=== PATIENT | female | born 1935 | race Caucasian/White ===

== ENCOUNTER 2017-04-13 07:58 | Inpatient (IN) | payer MEDICARE ==
[~2017-04-13] VITALS: Ht 167.6 cm; Wt 65.7 kg
[~2017-04-13 07:58] MED LIST: BUDE180H IH; BUSP10TA3 PO; CALC1TAB3 PO; CHOL100044 PO; FISH1CAP27 PO; FLUT1BLS IH; LACT10SO PO; LEVO25TA54 PO; LISI-617 PO; METO25TA3 PO; MONT10TA21 PO; PARO-37 PO; PRED10TA3 PO; RANO500T2 PO; SIMV20TA6 PO; WARF3TAB29 PO; albuterol NEB; albuterol sulfate IH; glucosamine PO; normal saline EN
[2017-04-13] MEDS ORDERED: IPRATROPIUM/ALBUTEROL SULFATE 3 ML SOLUTION IH ONE ×2 (08:12→11:09)
[2017-04-13 08:26] LABS: BASOPHILS % (AUTO) 0.3 % (0.0-5.0); EOSINOPHILS % (AUTO) 0.7 % (0.0-8.0); HEMATOCRIT 36.5 % (36-48); LYMPHOCYTES % (AUTO) 14.8 % (21.0-51.0); MEAN CORPUSCULAR HEMOGLOBIN 26.1 pg (27.0-33.0); MEAN CORPUSCULAR HGB CONC 32.7 g/dL (32.0-36.0); MEAN CORPUSCULAR VOLUME 79.9 fL (79-99); MONOCYTES % (AUTO) 9.5 % (3.0-13.0); NEUTROPHILS % (AUTO) 74.7 % (40.0-77.0); PLATELET COUNT (AUTO) 194 K/uL (130-400); RED BLOOD CELL COUNT(AUTO) 4.57 MIL/uL (4.00-5.50); RED CELL DISTRIBUTION WIDTH 17.8 % (11.0-15.5)
[2017-04-13 08:34] LABS: CREATININE 0.9 mg/dL (0.5-1.5); POTASSIUM 4.1 mmol/L (3.5-5.1)
[2017-04-13 08:43] LABS: INR 0.98 (0.85-1.15); PARTIAL THROMBOPLASTIN TIME 25.2 SEC (26.3-35.5); PROTHROMBIN TIME 10.3 SEC (9.6-11.6)
[2017-04-13 08:48] LABS: ALBUMIN 3.7 g/dL (3.5-5.0); BILIRUBIN,TOTAL 0.6 mg/dL (0.2-1.0); CREATINE KINASE MB 0.8 ng/mL (0.5-3.6); TOTAL PROTEIN, SERUM 7.5 g/dL (6.0-8.3)
[2017-04-13] MEDS ORDERED: SODIUM CHLORIDE 0.9% 1000ML 1,000 ML IV ONE (10:24)
[2017-04-13] MEDS ORDERED: SODIUM CHLORIDE 0.9% 100 ML IV ONE (10:25)
[2017-04-13] MEDS ORDERED: CEFTRIAXONE SODIUM 2 GM VIAL ONE (10:25)
[2017-04-13] MEDS ORDERED: OSELTAMIVIR PHOSPHATE 75 MG CAP ONE (10:25)
[2017-04-13] MEDS ORDERED: HYDROCODONE/ACETAMINOPHEN 5/325 MG TAB ONE (11:03)
[2017-04-13] MEDS ORDERED: FUROSEMIDE 10 MG/ML 4ML VIAL ONE ×2 (11:07→11:27)
[2017-04-13] MEDS ORDERED: NITROGLYCERIN 50 MG/D5% WATER 1 BOT ONE (11:37)
[2017-04-13 11:41] LABS: ABG BASE EXCESS -8.4 mmol/L (-2.0-3.0); ABG HCO3 18.1 mmol/L (21.0-28.0); ABG OXYGEN SATURATION 99.6 % (95.0-99.0); ABG PCO2 41 mmHg (32-45)
[2017-04-13] MEDS ORDERED: LIDOCAINE HCL-MPF 1% 2ML VIAL IVP PRN (12:30)
[2017-04-13] MEDS ORDERED: NON-FORMULARY MEDICATION 1 EACH (Metoprolol Succinate (Toprol Xl) 25 MG) PO PRN (12:30)
[2017-04-13] MEDS ORDERED: ONDANSETRON HCL 4 MG/2 ML VIAL IV PRN (12:30)
[2017-04-13] MEDS ORDERED: POTASSIUM CHLORIDE 10% ELIXIR 20 MEQ/15 ML UDCUP PO PRN (12:30)
[2017-04-13] MEDS ORDERED: ALBUTEROL SULFATE 0.083% 2.5 MG/3 ML INH IH PRN (12:30)
[2017-04-13] MEDS ORDERED: POTASSIUM CHLORIDE 20 MEQ ERTAB PO PRN (12:30)
[2017-04-13] MEDS ORDERED: LACTULOSE 20 GM/30 ML UDCUP PO PRN (12:30)
[2017-04-13] MEDS ORDERED: MAG HYDROX/AL HYDROX/SIMETH ES 30 ML SUSP UDCUP PO PRN (12:30)
[2017-04-13] MEDS ORDERED: ACETAMINOPHEN 325 MG TAB PO PRN ×2 (12:30)
[2017-04-13] MEDS ORDERED: POTASSIUM CHLORIDE 20MEQ/100ML 100 ML IV PRN (12:30)
[2017-04-13] MEDS ORDERED: CLOP75TA32 PO (12:31)
[2017-04-13] MEDS ORDERED: VANCOMYCIN 1GM+NS 250ML 250 ML IV ONE (12:50)
[2017-04-13] MEDS: LEVOFLOXACIN 500 MG TABLET PO SCH (15:00)
[2017-04-13] MEDS ORDERED: METHYLPREDNISOLONE SOD SUCC 125MG/2ML VIAL ONE (17:04)
[2017-04-13] MEDS ORDERED: AZITHROMYCIN 250 MG TABLET PO ONE (17:05)
[2017-04-13] MEDS ORDERED: 1/2 NORMAL SALINE 1,000 ML IV ONE (17:06)
[2017-04-13] MEDS ORDERED: ONDANSETRON HCL 4 MG/2 ML VIAL ONE (18:03)
[2017-04-13] MEDS ORDERED: OSELTAMIVIR PHOSPHATE 75 MG CAP PO SCH (21:00)
[2017-04-13] MEDS: MONTELUKAST SODIUM 10 MG TAB PO SCH (21:00)
[2017-04-13] MEDS: ALBUTEROL SULFATE 0.083% 2.5 MG/3 ML INH IH SCH (21:00)
[2017-04-13] MEDS: FUROSEMIDE 10 MG/ML 4ML VIAL IVP SCH (21:00)
[2017-04-13] MEDS: ATORVASTATIN CALCIUM 10 MG TABLET PO SCH (21:00)
[2017-04-13] MEDS ORDERED: ALBUTEROL SULFATE 0.083% 2.5 MG/3 ML INH IH ONE (22:06)
[2017-04-14 05:29] LABS: HEMATOCRIT 32.9 % (36-48); MEAN CORPUSCULAR HEMOGLOBIN 25.7 pg (27.0-33.0); MEAN CORPUSCULAR HGB CONC 32.2 g/dL (32.0-36.0); MEAN CORPUSCULAR VOLUME 79.8 fL (79-99); PLATELET COUNT (AUTO) 170 K/uL (130-400); RED BLOOD CELL COUNT(AUTO) 4.13 MIL/uL (4.00-5.50); WHITE BLOOD COUNT (AUTO) 13.6 K/uL (4.8-10.8)
[2017-04-14 05:37] LABS: CREATININE 1.3 mg/dL (0.5-1.5)
[2017-04-14] MEDS ORDERED: ALBUTEROL SULFATE 0.083% 2.5 MG/3 ML INH IH ONE ×2 (06:11→10:18)
[2017-04-14] MEDS: ALBUTEROL SULFATE 0.083% 2.5 MG/3 ML INH IH SCH ×4 (06:22→21:29)
[2017-04-14] MEDS: LEVOTHYROXINE 25 MCG TABLET PO SCH (06:30)
[2017-04-14] MEDS: PREDNISONE 20 MG TABLET PO SCH ×2 (07:00→09:00)
[2017-04-14] MEDS ORDERED: FUROSEMIDE 10 MG/ML 4ML VIAL ONE (08:46)
[2017-04-14] MEDS ORDERED: LEVOTHYROXINE 25 MCG TABLET ONE (08:46)
[2017-04-14] MEDS ORDERED: LEVOFLOXACIN 500 MG TABLET ONE (08:47)
[2017-04-14] MEDS ORDERED: ENOXAPARIN SODIUM 30 MG/0.3 ML SQ ONE (08:47)
[2017-04-14] MEDS ORDERED: PREDNISONE 20 MG TABLET ONE (08:47)
[2017-04-14] MEDS ORDERED: OSELTAMIVIR PHOSPHATE 75 MG CAP ONE (08:49)
[2017-04-14] MEDS ORDERED: PANTOPRAZOLE SODIUM 40 MG TABLET.DR PO ONE (08:56)
[2017-04-14] MEDS: BUSPIRONE HCL 5 MG TABLET PO SCH ×2 (09:00→21:16)
[2017-04-14] MEDS: PAROXETINE HCL 20 MG TABLET PO SCH (09:00)
[2017-04-14] MEDS: ENOXAPARIN SODIUM 30 MG/0.3 ML SQ SCH (09:00)
[2017-04-14] MEDS: PANTOPRAZOLE SODIUM 40 MG TABLET.DR PO SCH (09:00)
[2017-04-14] MEDS: FUROSEMIDE 10 MG/ML 4ML VIAL IVP SCH ×2 (09:00→21:17)
[2017-04-14] MEDS: POTASSIUM CHLORIDE 20 MEQ ERTAB PO SCH ×2 (09:00→21:17)
[2017-04-14] MEDS: RANOLAZINE 500 MG TAB.SR.12H PO SCH ×4 (09:00→21:00)
[2017-04-14] MEDS ORDERED: PAROXETINE HCL 25 MG TAB.SR.24H PO SCH (09:15)
[2017-04-14] MEDS ORDERED: ACETAMINOPHEN 325 MG TAB ONE (10:14)
[2017-04-14] MEDS ORDERED: ASPI-555 PO (12:18)
[2017-04-14] MEDS ORDERED: GABA-529 PO (12:18)
[2017-04-14 13:20] VITALS: BP 123/58
[2017-04-14] MEDS ORDERED: COMPOUND PO NARCOTIC 1 EACH PO SCH (14:45)
[2017-04-14] MEDS: LEVOFLOXACIN 500 MG TABLET PO SCH ×2 (15:00→17:56)
[2017-04-14 15:24] VITALS: BP 106/51
[2017-04-14 19:43] VITALS: BP 132/67
[2017-04-14] MEDS: MONTELUKAST SODIUM 10 MG TAB PO SCH (21:15)
[2017-04-14] MEDS: OSELTAMIVIR SUSP 15 MG/ML (6 CAPS/29ML) PO SCH ×2 (21:15)
[2017-04-14] MEDS: ATORVASTATIN CALCIUM 10 MG TABLET PO SCH (21:16)
[2017-04-15 00:21] VITALS: BP 147/65
[2017-04-15 05:01] VITALS: BP 120/59
[2017-04-15 05:34] LABS: HEMATOCRIT 31.4 % (36-48); MEAN CORPUSCULAR HEMOGLOBIN 26.5 pg (27.0-33.0); MEAN CORPUSCULAR HGB CONC 33.5 g/dL (32.0-36.0); MEAN CORPUSCULAR VOLUME 79.1 fL (79-99); PLATELET COUNT (AUTO) 177 K/uL (130-400); RED BLOOD CELL COUNT(AUTO) 3.97 MIL/uL (4.00-5.50); RED CELL DISTRIBUTION WIDTH 17.4 % (11.0-15.5); WHITE BLOOD COUNT (AUTO) 11.7 K/uL (4.8-10.8)
[2017-04-15 05:56] LABS: CREATININE 1.3 mg/dL (0.5-1.5); POTASSIUM 4.5 mmol/L (3.5-5.1)
[2017-04-15] MEDS: ALBUTEROL SULFATE 0.083% 2.5 MG/3 ML INH IH SCH ×4 (06:03→18:37)
[2017-04-15] MEDS: LEVOTHYROXINE 25 MCG TABLET PO SCH (07:04)
[2017-04-15 08:00] VITALS: BP 129/58
[2017-04-15] MEDS: PREDNISONE 20 MG TABLET PO SCH (08:53)
[2017-04-15] MEDS: POTASSIUM CHLORIDE 20 MEQ ERTAB PO SCH ×2 (08:53→20:50)
[2017-04-15] MEDS: RANOLAZINE 500 MG TAB.SR.12H PO SCH ×5 (08:54→20:59)
[2017-04-15] MEDS: BUSPIRONE HCL 5 MG TABLET PO SCH ×2 (08:54→20:49)
[2017-04-15] MEDS: PANTOPRAZOLE SODIUM 40 MG TABLET.DR PO SCH (08:54)
[2017-04-15] MEDS: FUROSEMIDE 10 MG/ML 4ML VIAL IVP SCH ×2 (08:54→20:50)
[2017-04-15] MEDS: PAROXETINE HCL 20 MG TABLET PO SCH (08:54)
[2017-04-15] MEDS: ENOXAPARIN SODIUM 30 MG/0.3 ML SQ SCH (08:55)
[2017-04-15] MEDS: OSELTAMIVIR SUSP 15 MG/ML (6 CAPS/29ML) PO SCH ×4 (08:58→21:00)
[2017-04-15 11:00] VITALS: BP 130/59
[2017-04-15] MEDS: LEVOFLOXACIN 500 MG TABLET PO SCH (14:43)
[2017-04-15 16:00] VITALS: BP 142/62
[2017-04-15 20:15] VITALS: BP 132/63
[2017-04-15] MEDS: ATORVASTATIN CALCIUM 10 MG TABLET PO SCH (20:50)
[2017-04-15] MEDS: MONTELUKAST SODIUM 10 MG TAB PO SCH (20:50)
[2017-04-16 00:54] VITALS: BP 118/58
[2017-04-16 04:26] VITALS: BP 115/59
[2017-04-16] MEDS: OSELTAMIVIR SUSP 15 MG/ML (6 CAPS/29ML) PO SCH ×4 (06:48→09:05)
[2017-04-16] MEDS: LEVOTHYROXINE 25 MCG TABLET PO SCH (06:51)
[2017-04-16] MEDS ORDERED: Buspirone Hcl PO (07:22)
[2017-04-16] MEDS ORDERED: OSEL45CA PO (07:22)
[2017-04-16] MEDS ORDERED: LEVO500T2 PO (07:22)
[2017-04-16] MEDS ORDERED: PRED10TA3 PO (07:22)
[2017-04-16 07:45] VITALS: BP 146/75
[2017-04-16] MEDS: ALBUTEROL SULFATE 0.083% 2.5 MG/3 ML INH IH SCH ×3 (07:49→13:13)
[2017-04-16] MEDS: RANOLAZINE 500 MG TAB.SR.12H PO SCH ×2 (09:00→09:07)
[2017-04-16] MEDS ORDERED: GABAPENTIN 100 MG CAPSULE PO SCH (09:00)
[2017-04-16] MEDS: ENOXAPARIN SODIUM 30 MG/0.3 ML SQ SCH (09:06)
[2017-04-16] MEDS: PANTOPRAZOLE SODIUM 40 MG TABLET.DR PO SCH (09:07)
[2017-04-16] MEDS: PREDNISONE 20 MG TABLET PO SCH (09:08)
[2017-04-16] MEDS: POTASSIUM CHLORIDE 20 MEQ ERTAB PO SCH (09:08)
[2017-04-16] MEDS: BUSPIRONE HCL 5 MG TABLET PO SCH (09:08)
[2017-04-16] MEDS: PAROXETINE HCL 20 MG TABLET PO SCH (09:08)
[2017-04-16] MEDS ORDERED: METOPROLOL TARTRATE 25 MG TAB PO SCH ×2 (09:15→21:00)
[2017-04-16 12:00] VITALS: BP 130/60
[2017-04-16] MEDS: LEVOFLOXACIN 500 MG TABLET PO SCH (15:30)
== END 2017-04-16 16:47 | disposition home or self-care (01) | DRG 291 ==
LOC: EDH 07:58 → OBSVTOIN 11:05 → EDHIP 11:05 → 4BH 04-14 13:09
PROVIDERS: ADMIT Internal Medicine; ATTEND Internal Medicine
DX: I13.0 Hypertensive heart and chronic kidney disease with heart failure and stage 1 through stage 4 chronic kidney disease, or unspecified chronic kidney disease (principal); I50.43 Acute on chronic combined systolic (congestive) and diastolic (congestive) heart failure; E86.0 Dehydration; Z94.0 Kidney transplant status; J45.901 Unspecified asthma with (acute) exacerbation; I48.91 Unspecified atrial fibrillation; F03.90 Unspecified dementia, unspecified severity, without behavioral disturbance, psychotic disturbance, mood disturbance, and anxiety; J44.9 Chronic obstructive pulmonary disease, unspecified; E03.9 Hypothyroidism, unspecified; E78.2 Mixed hyperlipidemia; K21.9 Gastro-esophageal reflux disease without esophagitis; F41.1 Generalized anxiety disorder; I50.32 Chronic diastolic (congestive) heart failure; M81.0 Age-related osteoporosis without current pathological fracture; I35.0 Nonrheumatic aortic (valve) stenosis; I25.10 Atherosclerotic heart disease of native coronary artery without angina pectoris; Z95.2 Presence of prosthetic heart valve; Z83.3 Family history of diabetes mellitus; Z82.5 Family history of asthma and other chronic lower respiratory diseases; Z82.49 Family history of ischemic heart disease and other diseases of the circulatory system; Z82.3 Family history of stroke; Z82.0 Family history of epilepsy and other diseases of the nervous system; Z95.5 Presence of coronary angioplasty implant and graft; Z79.01 Long term (current) use of anticoagulants; Z88.8 Allergy status to other drugs, medicaments and biological substances; Z91.041 Radiographic dye allergy status
CPT/HCPCS: 36415; 36600; 71045; 71046; 80048; 80053; 82550; 82553; 82803; 83605; 83880; 84484; 85025; 85027; 85610; 85730; 87040; 87804; 93005; 94640; 94660; 94664; 99291; J0696; J1650; J1940; J2405; J2930; J3370; J3490; J7030

== ENCOUNTER → 2017-05-08 | Outpatient (CLI) | payer MEDICARE ==
[~2017-05-08] MED LIST changes: +ASPI-555 PO; -BUDE180H IH; -BUSP10TA3 PO; +Buspirone Hcl PO; -CALC1TAB3 PO; -CHOL100044 PO; +CLOP75TA32 PO; -FISH1CAP27 PO; +GABA-529 PO; -LACT10SO PO; +LEVO500T2 PO; -LISI-617 PO; +OSEL45CA PO; -RANO500T2 PO; -SIMV20TA6 PO; -WARF3TAB29 PO; -albuterol NEB; -albuterol sulfate IH; -glucosamine PO; -normal saline EN
== END | disposition home or self-care (01) ==
LOC: RAH 09:58
PROVIDERS: ATTEND Internal Medicine
DX: I13.10 Hypertensive heart and chronic kidney disease without heart failure, with stage 1 through stage 4 chronic kidney disease, or unspecified chronic kidney disease (principal); N18.9 Chronic kidney disease, unspecified; J44.0 Chronic obstructive pulmonary disease with (acute) lower respiratory infection
CPT/HCPCS: 71046

== ENCOUNTER → 2017-06-11 | Outpatient (CLI) | payer MEDICARE | LOC: RAH 10:27 | PROVIDERS: ATTEND Internal Medicine | DX: I10 Essential (primary) hypertension (principal); R93.8 Abnormal findings on diagnostic imaging of other specified body structures | CPT/HCPCS: 71046 ==

== ENCOUNTER 2017-09-14 16:12 | Emergency (ER) | payer MEDICARE ==
[2017-09-14] MEDS ORDERED: ONDANSETRON ODT 4 MG TAB ONE (16:42)
[2017-09-14] MEDS ORDERED: HYDROCODONE/ACETAMINOPHEN 5/325 MG TAB ONE (16:43)
[2017-09-14 16:46] LABS: BASOPHILS % (AUTO) 0.8 % (0.0-5.0); EOSINOPHILS % (AUTO) 4.5 % (0.0-8.0); HEMATOCRIT 35.1 % (36-48); LYMPHOCYTES % (AUTO) 25.3 % (21.0-51.0); MEAN CORPUSCULAR HEMOGLOBIN 27.6 pg (27.0-33.0); MEAN CORPUSCULAR HGB CONC 33.1 g/dL (32.0-36.0); MEAN CORPUSCULAR VOLUME 83.4 fL (79-99); MONOCYTES % (AUTO) 12.7 % (3.0-13.0); NEUTROPHILS % (AUTO) 56.7 % (40.0-77.0); PLATELET COUNT (AUTO) 227 K/uL (130-400); RED BLOOD CELL COUNT(AUTO) 4.21 MIL/uL (4.00-5.50); RED CELL DISTRIBUTION WIDTH 16.5 % (11.0-15.5); WHITE BLOOD COUNT (AUTO) 4.6 K/uL (4.8-10.8)
[2017-09-14 16:56] LABS: CREATININE 0.7 mg/dL (0.5-1.5); POTASSIUM 4.2 mmol/L (3.5-5.1)
== END 2017-09-14 18:36 | disposition home or self-care (01) ==
LOC: EDH 16:12
DX: M71.21 Synovial cyst of popliteal space [Baker], right knee (principal); M17.11 Unilateral primary osteoarthritis, right knee; I25.10 Atherosclerotic heart disease of native coronary artery without angina pectoris; I48.91 Unspecified atrial fibrillation; Z90.49 Acquired absence of other specified parts of digestive tract; Z98.890 Other specified postprocedural states; Z88.8 Allergy status to other drugs, medicaments and biological substances
CPT/HCPCS: 36415; 73562; 80048; 85025; 93971

== ENCOUNTER → 2019-04-16 | Outpatient (CLI) | payer MEDICARE | END | disposition home or self-care (01) | LOC: RAH 13:00 | PROVIDERS: ATTEND Internal Medicine | DX: M47.816 Spondylosis without myelopathy or radiculopathy, lumbar region (principal); M51.27 Other intervertebral disc displacement, lumbosacral region; M41.86 Other forms of scoliosis, lumbar region; M43.8X6 Other specified deforming dorsopathies, lumbar region; M99.53 Intervertebral disc stenosis of neural canal of lumbar region; M48.061 Spinal stenosis, lumbar region without neurogenic claudication | CPT/HCPCS: 72100; 72148 ==

== ENCOUNTER → 2020-07-06 | Outpatient (CLI) | payer MEDICARE ==
[~2020-07-06] MED LIST changes: -ASPI-555 PO; +ASPI-556 PO
== END | disposition home or self-care (01) ==
LOC: OIH 09:15
PROVIDERS: ATTEND Internal Medicine
DX: S32.020A Wedge compression fracture of second lumbar vertebra, initial encounter for closed fracture (principal); M51.36 Other intervertebral disc degeneration, lumbar region; M85.88 Other specified disorders of bone density and structure, other site; M41.9 Scoliosis, unspecified; X58.XXXA Exposure to other specified factors, initial encounter; Y93.89 Activity, other specified; Y92.89 Other specified places as the place of occurrence of the external cause; Y99.8 Other external cause status
CPT/HCPCS: 72110

== ENCOUNTER → 2020-08-26 | Outpatient (CLI) | payer MEDICARE | END | disposition home or self-care (01) | LOC: RAH 10:32 | PROVIDERS: ATTEND Internal Medicine | DX: M16.0 Bilateral primary osteoarthritis of hip (principal); M25.751 Osteophyte, right hip; M25.752 Osteophyte, left hip | CPT/HCPCS: 72170 ==

== ENCOUNTER 2021-07-15 10:52 | Observation (INO) | payer MEDICARE ==
[~2021-07-15] VITALS: Ht 167.6 cm; Wt 94.8 kg
[2021-07-15 11:34] LABS: BASOPHILS % (AUTO) 0.4 % (0.0-5.0); EOSINOPHILS % (AUTO) 0.1 % (0.0-8.0); HEMATOCRIT 40.7 % (36-48); LYMPHOCYTES % (AUTO) 12.8 % (21.0-51.0); MEAN CORPUSCULAR HEMOGLOBIN 30.5 pg (27.0-33.0); MEAN CORPUSCULAR HGB CONC 32.4 g/dL (32.0-36.0); MONOCYTES % (AUTO) 5.6 % (3.0-13.0); NEUTROPHILS % (AUTO) 80.8 % (40.0-77.0); PLATELET COUNT (AUTO) 228 K/uL (130-400); RED BLOOD CELL COUNT(AUTO) 4.33 MIL/uL (4.00-5.50); RED CELL DISTRIBUTION WIDTH 13.3 % (11.0-15.5); WHITE BLOOD COUNT (AUTO) 6.8 K/uL (4.8-10.8)
[2021-07-15 11:53] LABS: ALBUMIN 3.6 g/dL (3.5-5.0); BILIRUBIN,TOTAL 0.5 mg/dL (0.2-1.0); MAGNESIUM 2.3 mg/dL (1.80-2.40); POTASSIUM 4.7 mmol/L (3.5-5.1); TOTAL PROTEIN, SERUM 6.9 g/dL (6.0-8.3)
[2021-07-15 12:04] LABS: B-TYPE NATRIURETIC PEPTIDE 168 pg/mL (0-100)
[2021-07-15] MEDS ORDERED: ALBU2.5V2 IH (15:06)
[2021-07-15] MEDS ORDERED: ATOR10 PO (15:07)
[2021-07-15] MEDS ORDERED: CALC1TAB2 PO (15:11)
[2021-07-15] MEDS ORDERED: FLUT1BLS IH (15:11)
[2021-07-15] MEDS ORDERED: CILO50TA PO (15:12)
[2021-07-15] MEDS ORDERED: HYDR-4153 PO ×2 (15:13→15:23)
[2021-07-15] MEDS ORDERED: DILT180T12 PO (15:13)
[2021-07-15 15:15] VITALS: BP 136/72
[2021-07-15] MEDS ORDERED: LACT10SO5 PO ×2 (15:15→15:23)
[2021-07-15] MEDS ORDERED: POLY17PO4 PO ×2 (15:15→15:23)
[2021-07-15] MEDS ORDERED: ALBU8.5H8 IH (15:16)
[2021-07-15] MEDS ORDERED: PREG75CA75 PO (15:16)
[2021-07-15] MEDS ORDERED: RANO500T3 PO (15:17)
[2021-07-15] MEDS ORDERED: ACET-2079 PO (15:18)
[2021-07-15] MEDS ORDERED: CYAN-35 PO (15:18)
[2021-07-15] MEDS ORDERED: LEVO50TA11 PO (15:26)
[2021-07-15] MEDS ORDERED: PARO10TA71 PO (15:26)
[2021-07-15] MEDS ORDERED: METO25TA6 PO (15:26)
[2021-07-15] MEDS ORDERED: BUSP10TA3 PO (15:26)
[2021-07-15] MEDS ORDERED: DENO60DI SQ (15:26)
[2021-07-15] MEDS ORDERED: CETI10TA57 PO (15:26)
[2021-07-15 16:00] VITALS: BP 146/74
[2021-07-15] MEDS: NITROGLYCERIN 1GM OINT 1 INCH/1GM TD SCH ×2 (16:00→23:38)
[2021-07-15 19:15] VITALS: BP 150/69
[2021-07-15] MEDS ORDERED: MAG/ALUM/SIMETH 30 ML UDCUP PO PRN (19:30)
[2021-07-15] MEDS ORDERED: LACTULOSE 20 GM/30 ML UDCUP PO PRN (19:30)
[2021-07-15] MEDS ORDERED: LACTULOSE 15 GM PO PRN (19:30)
[2021-07-15] MEDS ORDERED: DiphenhydrAMINE HCL 50 MG/ML VIAL IV PRN (19:30)
[2021-07-15] MEDS ORDERED: ACETAMINOPHEN 325 MG TAB PO PRN (19:30)
[2021-07-15] MEDS ORDERED: ALBUTEROL INHALER 90MCG/INH IH PRN (19:30)
[2021-07-15] MEDS ORDERED: DIPHENHYDRAMINE HCL 25 MG CAPSULE PO PRN (19:30)
[2021-07-15] MEDS ORDERED: NON-FORMULARY MEDICATION 1 EACH (Buspirone HCl 10 MG) PO PRN (19:30)
[2021-07-15] MEDS ORDERED: HYDRALAZINE 25MG TABLET PO PRN (19:30)
[2021-07-15] MEDS ORDERED: ONDANSETRON 4MG INJ IV PRN (19:30)
[2021-07-15] MEDS ORDERED: ALBUTEROL 0.083% 2.5 MG/3 ML INH IH PRN (19:30)
[2021-07-15] MEDS ORDERED: BUSPIRONE HCL 5 MG TABLET PO PRN (20:00)
[2021-07-15] MEDS: ATORVASTATIN 10 MG TABLET PO SCH (20:47)
[2021-07-15] MEDS: ROPINIROLE HCL 0.25 MG TABLET PO SCH (20:47)
[2021-07-15] MEDS: METOPROLOL TARTRATE 25 MG TAB PO SCH (20:47)
[2021-07-15] MEDS: PREGABALIN 75 MG CAPSULE PO SCH (20:47)
[2021-07-15] MEDS: MONTELUKAST SODIUM 10 MG TAB PO SCH (20:47)
[2021-07-16 00:03] VITALS: BP 138/64
[2021-07-16 03:10] VITALS: BP 145/61
[2021-07-16] MEDS: NITROGLYCERIN 1GM OINT 1 INCH/1GM TD SCH ×3 (06:19→22:46)
[2021-07-16] MEDS: ROPINIROLE HCL 0.25 MG TABLET PO SCH ×3 (07:38→20:34)
[2021-07-16] MEDS: ENOXAPARIN SODIUM 30 MG/0.3 ML SQ SCH (07:39)
[2021-07-16] MEDS: DILTIAZEM 180MG SR CAP PO SCH (07:39)
[2021-07-16] MEDS: CETIRIZINE HCL 5 MG TABLET PO SCH (07:39)
[2021-07-16] MEDS: CLOPIDOGREL 75MG TAB PO SCH (07:39)
[2021-07-16] MEDS: RANOLAZINE 500 MG TAB.SR.12H PO SCH (07:40)
[2021-07-16] MEDS: PAROXETINE HCL 20 MG TABLET PO SCH (07:40)
[2021-07-16] MEDS: CILOSTAZOL 100 MG TAB PO SCH ×2 (07:40→16:59)
[2021-07-16] MEDS: METOPROLOL TARTRATE 25 MG TAB PO SCH ×2 (07:42→20:34)
[2021-07-16 08:00] VITALS: BP 117/74
[2021-07-16] MEDS ORDERED: NON-FORMULARY MEDICATION 1 EACH (Cetirizine HCl 10 MG) PO SCH (08:00)
[2021-07-16] MEDS ORDERED: NON-FORMULARY MEDICATION 1 EACH (Cilostazol 50 MG) PO SCH (09:00)
[2021-07-16] MEDS: LEVOTHYROXINE 50 MCG TABLET PO SCH (09:00)
[2021-07-16] MEDS: BREO ELLIPTA 200-25 MCG INH IH SCH (09:00)
[2021-07-16] MEDS ORDERED: NON-FORMULARY MEDICATION 1 EACH (Paroxetine HCl 10 MG) PO SCH (09:00)
[2021-07-16] MEDS ORDERED: NON-FORMULARY MEDICATION 1 EACH (Diltiazem HCl (Diltiazem ER) 180 MG) PO SCH (09:00)
[2021-07-16] MEDS ORDERED: REGADENOSON 0.4 MG/5 ML PF SYG IVP SCH (11:30)
[2021-07-16 12:00] VITALS: BP 122/78
[2021-07-16] MEDS: ACETAMINOPHEN 325 MG TAB PO PRN (13:16)
[2021-07-16 16:00] VITALS: BP 118/64
[2021-07-16 19:12] VITALS: BP 147/63
[2021-07-16] MEDS: ATORVASTATIN 10 MG TABLET PO SCH (20:34)
[2021-07-16] MEDS: PREGABALIN 75 MG CAPSULE PO SCH (20:34)
[2021-07-16] MEDS: MONTELUKAST SODIUM 10 MG TAB PO SCH (20:34)
[2021-07-17 00:03] VITALS: BP 134/58
[2021-07-17 03:05] VITALS: BP 140/54
[2021-07-17] MEDS: LEVOTHYROXINE 50 MCG TABLET PO SCH (05:46)
[2021-07-17] MEDS: NITROGLYCERIN 1GM OINT 1 INCH/1GM TD SCH ×2 (06:24→14:30)
[2021-07-17] MEDS: CILOSTAZOL 100 MG TAB PO SCH ×2 (06:32→16:30)
[2021-07-17] MEDS ORDERED: POLYETHYLENE GLYCOL 3350 17 GM POWD.PACK PO SCH (09:00)
[2021-07-17] MEDS: BREO ELLIPTA 200-25 MCG INH IH SCH (09:00)
[2021-07-17] MEDS: CETIRIZINE HCL 5 MG TABLET PO SCH (09:56)
[2021-07-17] MEDS: PAROXETINE HCL 20 MG TABLET PO SCH (09:57)
[2021-07-17] MEDS: CLOPIDOGREL 75MG TAB PO SCH (10:00)
[2021-07-17] MEDS: ACETAMINOPHEN 325 MG TAB PO PRN (10:00)
[2021-07-17] MEDS: RANOLAZINE 500 MG TAB.SR.12H PO SCH (10:01)
[2021-07-17] MEDS: DILTIAZEM 180MG SR CAP PO SCH (10:01)
[2021-07-17] MEDS: ENOXAPARIN SODIUM 30 MG/0.3 ML SQ SCH (10:02)
[2021-07-17] MEDS: METOPROLOL TARTRATE 25 MG TAB PO SCH ×2 (10:02→20:12)
[2021-07-17] MEDS: ROPINIROLE HCL 0.25 MG TABLET PO SCH ×3 (10:07→20:13)
[2021-07-17 12:48] VITALS: BP 144/52
[2021-07-17] MEDS ORDERED: ISOS30TA92 PO (15:49)
[2021-07-17 16:30] VITALS: BP 140/56
[2021-07-17 19:03] VITALS: BP_SYST 125; BP_SYST 166; BP_DIAS 59; BP_DIAS 92
[2021-07-17] MEDS: ATORVASTATIN 10 MG TABLET PO SCH (20:11)
[2021-07-17] MEDS: PREGABALIN 75 MG CAPSULE PO SCH (20:11)
[2021-07-17] MEDS: MONTELUKAST SODIUM 10 MG TAB PO SCH (21:28)
[2021-07-18 00:03] VITALS: BP 147/59
[2021-07-18 03:03] VITALS: BP 139/62
[2021-07-18 06:02] LABS: APPEARANCE,URINE Clear (CLEAR); BILIRUBIN,URINE Negative (NEGATIVE); COLOR,URINE Yellow (YELLOW); GLUCOSE, URINE (UA) Negative (NEGATIVE); KETONES,URINE Negative (NEGATIVE); LEUKOCYTE ESTERASE ,URINE Small (NEGATIVE); NITRATE,URINE Negative (NEGATIVE); OCCULT BLOOD,URINE Negative (NEGATIVE); PROTEIN,URINE Negative (NEGATIVE); UROBILINOGEN,URINE 0.2 mg/dL (0.2-1.0)
[2021-07-18] MEDS: CILOSTAZOL 100 MG TAB PO SCH (06:06)
[2021-07-18] MEDS: LEVOTHYROXINE 50 MCG TABLET PO SCH (06:06)
[2021-07-18 06:40] LABS: RBC,URINE 0-1 /HPF (0-1); SQUAMOUS EPITHELIAL CELL,UR Moderate /HPF (0-2)
[2021-07-18 06:41] LABS: BACTERIA,URINE Few /HPF (None Seen)
[2021-07-18 07:00] VITALS: BP 136/58
[2021-07-18] MEDS ORDERED: ISOSORBIDE MONO 30MG SR TAB PO SCH (09:00)
[2021-07-18] MEDS: BREO ELLIPTA 200-25 MCG INH IH SCH (09:00)
[2021-07-18] MEDS: ENOXAPARIN SODIUM 30 MG/0.3 ML SQ SCH (09:05)
[2021-07-18] MEDS: RANOLAZINE 500 MG TAB.SR.12H PO SCH (09:05)
[2021-07-18] MEDS: CETIRIZINE HCL 5 MG TABLET PO SCH (09:05)
[2021-07-18] MEDS: ROPINIROLE HCL 0.25 MG TABLET PO SCH ×2 (09:05→14:04)
[2021-07-18] MEDS: PAROXETINE HCL 20 MG TABLET PO SCH (09:06)
[2021-07-18] MEDS: DILTIAZEM 180MG SR CAP PO SCH (09:07)
[2021-07-18] MEDS: CLOPIDOGREL 75MG TAB PO SCH (09:07)
[2021-07-18] MEDS: METOPROLOL TARTRATE 25 MG TAB PO SCH (09:07)
[2021-07-18 11:00] VITALS: BP 139/60
== END 2021-07-18 14:30 | disposition home or self-care (01) ==
LOC: EDH 10:52 → EDHIP 13:30 → 2AH 15:19
PROVIDERS: ADMIT Internal Medicine; ATTEND Internal Medicine
DX: R07.89 Other chest pain (principal); I25.110 Atherosclerotic heart disease of native coronary artery with unstable angina pectoris; I42.9 Cardiomyopathy, unspecified; I35.0 Nonrheumatic aortic (valve) stenosis; I13.0 Hypertensive heart and chronic kidney disease with heart failure and stage 1 through stage 4 chronic kidney disease, or unspecified chronic kidney disease; I50.42 Chronic combined systolic (congestive) and diastolic (congestive) heart failure; I48.0 Paroxysmal atrial fibrillation; N18.31 Chronic kidney disease, stage 3a; J44.9 Chronic obstructive pulmonary disease, unspecified; F41.9 Anxiety disorder, unspecified; J30.9 Allergic rhinitis, unspecified; K21.9 Gastro-esophageal reflux disease without esophagitis; M85.80 Other specified disorders of bone density and structure, unspecified site; M48.061 Spinal stenosis, lumbar region without neurogenic claudication; M81.0 Age-related osteoporosis without current pathological fracture; E03.9 Hypothyroidism, unspecified; I25.10 Atherosclerotic heart disease of native coronary artery without angina pectoris; I24.9 Acute ischemic heart disease, unspecified; I25.2 Old myocardial infarction; K22.2 Esophageal obstruction; M16.11 Unilateral primary osteoarthritis, right hip; M16.12 Unilateral primary osteoarthritis, left hip; Z66 Do not resuscitate; Z79.02 Long term (current) use of antithrombotics/antiplatelets; Z79.82 Long term (current) use of aspirin; Z79.899 Other long term (current) drug therapy; Z79.51 Long term (current) use of inhaled steroids; Z79.890 Hormone replacement therapy; Z95.2 Presence of prosthetic heart valve; Z95.5 Presence of coronary angioplasty implant and graft
CPT/HCPCS: 36415 ×2; 71045; 73502; 78452; 80053; 81001; 82550; 82948 ×2; 83735; 83874; 83880; 84484 ×2; 85025; 93005; 93017; 94664; 96372 ×3; 96374; 97039 ×5; 97116; 97161; 97530; 99285; A9500 ×2; G0378 ×63; J1650 ×3; J2785

== ENCOUNTER 2021-07-24 17:28 | Emergency (ER) | payer MEDICARE ==
[~2021-07-24] VITALS: Ht 167.6 cm; Wt 72.6 kg
[~2021-07-24 17:28] MED LIST changes: +ALBU2.5V2 IH; +ALBU8.5H8 IH; -ASPI-556 PO; +ATOR10 PO; +BUSP10TA3 PO; -Buspirone Hcl PO; +CALC1TAB2 PO; +CETI10TA57 PO; +CILO50TA PO; +CYAN-35 PO; +DENO60DI SQ; +DILT180T12 PO; -GABA-529 PO; +HYDR-4153 PO; +ISOS30TA92 PO; +LACT10SO5 PO; -LEVO25TA54 PO; -LEVO500T2 PO; +LEVO50TA11 PO; -METO25TA3 PO; +METO25TA6 PO; -OSEL45CA PO; -PARO-37 PO; +PARO10TA71 PO; +POLY17PO4 PO; -PRED10TA3 PO; +PREG75CA75 PO; +RANO500T3 PO
[2021-07-24 17:57] LABS: BASOPHILS % (AUTO) 0.3 % (0.0-5.0); EOSINOPHILS % (AUTO) 5.4 % (0.0-8.0); HEMATOCRIT 38.6 % (36-48); LYMPHOCYTES % (AUTO) 15.9 % (21.0-51.0); MEAN CORPUSCULAR HEMOGLOBIN 29.5 pg (27.0-33.0); MEAN CORPUSCULAR HGB CONC 31.1 g/dL (32.0-36.0); MEAN CORPUSCULAR VOLUME 94.8 fL (79-99); MONOCYTES % (AUTO) 14.7 % (3.0-13.0); NEUTROPHILS % (AUTO) 63.4 % (40.0-77.0); PLATELET COUNT (AUTO) 229 K/uL (130-400); RED BLOOD CELL COUNT(AUTO) 4.07 MIL/uL (4.00-5.50); RED CELL DISTRIBUTION WIDTH 13.1 % (11.0-15.5); WHITE BLOOD COUNT (AUTO) 5.9 K/uL (4.8-10.8)
[2021-07-24 18:12] LABS: CREATININE 0.9 mg/dL (0.5-1.5); POTASSIUM 4.6 mmol/L (3.5-5.1)
[2021-07-24 18:21] LABS: BILIRUBIN,TOTAL 0.4 mg/dL (0.2-1.0); TOTAL PROTEIN, SERUM 6.4 g/dL (6.0-8.3)
[2021-07-24 21:33] VITALS: BP 149/73
== END 2021-07-24 21:39 | disposition home or self-care (01) ==
LOC: EDH 17:28
DX: I10 Essential (primary) hypertension (principal); M47.816 Spondylosis without myelopathy or radiculopathy, lumbar region; R42 Dizziness and giddiness; J81.1 Chronic pulmonary edema; J44.9 Chronic obstructive pulmonary disease, unspecified; F41.9 Anxiety disorder, unspecified; Z90.710 Acquired absence of both cervix and uterus; Z79.899 Other long term (current) drug therapy
CPT/HCPCS: 36415; 70450; 71045; 80053; 84484; 85025; 93005

== ENCOUNTER 2022-03-29 01:10 | Emergency (ER) | payer MEDICARE ==
[~2022-03-29 01:10] MED LIST changes: -CILO50TA PO; +CILO50TA2 PO
[2022-03-29 01:33] LABS: BASOPHILS % (AUTO) 0.5 % (0.0-5.0); EOSINOPHILS % (AUTO) 1.9 % (0.0-8.0); HEMATOCRIT 40.2 % (36-48); LYMPHOCYTES % (AUTO) 18.3 % (21.0-51.0); MEAN CORPUSCULAR HEMOGLOBIN 30.4 pg (27.0-33.0); MEAN CORPUSCULAR HGB CONC 32.8 g/dL (32.0-36.0); MEAN CORPUSCULAR VOLUME 92.6 fL (79-99); MONOCYTES % (AUTO) 12.3 % (3.0-13.0); NEUTROPHILS % (AUTO) 66.5 % (40.0-77.0); PLATELET COUNT (AUTO) 213 K/uL (130-400); RED BLOOD CELL COUNT(AUTO) 4.34 MIL/uL (4.00-5.50); RED CELL DISTRIBUTION WIDTH 13.6 % (11.0-15.5); WHITE BLOOD COUNT (AUTO) 7.5 K/uL (4.8-10.8)
[2022-03-29 01:41] LABS: POTASSIUM 3.9 mmol/L (3.5-5.1)
[2022-03-29 01:43] LABS: INR 0.97 (0.85-1.15); PROTHROMBIN TIME 10.6 SEC (9.6-11.6)
[2022-03-29 01:44] LABS: PARTIAL THROMBOPLASTIN TIME 23.6 SEC (26.3-35.5)
[2022-03-29 01:45] LABS: ALBUMIN 3.5 g/dL (3.5-5.0); TOTAL PROTEIN, SERUM 7.1 g/dL (6.0-8.3)
[2022-03-29 09:12] VITALS: BP 156/66
[2022-04-02] MEDS ORDERED: CEPH500B PO (17:38)
[2022-04-02] MEDS ORDERED: PREG50 PO (18:27)
== END 2022-03-29 10:18 | disposition home or self-care (01) ==
LOC: EDH 01:10
DX: S09.90XA Unspecified injury of head, initial encounter (principal); F41.9 Anxiety disorder, unspecified; M54.50 Low back pain, unspecified; J44.9 Chronic obstructive pulmonary disease, unspecified; I10 Essential (primary) hypertension; Z79.02 Long term (current) use of antithrombotics/antiplatelets; Z79.51 Long term (current) use of inhaled steroids; Z79.899 Other long term (current) drug therapy; Z88.6 Allergy status to analgesic agent; Z88.8 Allergy status to other drugs, medicaments and biological substances; Y93.89 Activity, other specified; W01.0XXA Fall on same level from slipping, tripping and stumbling without subsequent striking against object, initial encounter; Y92.89 Other specified places as the place of occurrence of the external cause; Y99.8 Other external cause status
CPT/HCPCS: 36415; 70450; 72125; 80053; 84484; 85025; 85610; 85730; 93005